=== PATIENT | male | born 1975 | race African-American/Black ===

== ENCOUNTER → 2018-08-17 14:07 | Outpatient (CLI) | payer MEDICARE ==
[~2018-08-17 14:07] MED LIST: AMBIEN10 MG PO; HYDROCODON-ACE1 EA10 PO; NEURONTIN600 MG PO; ULTRAM50 MG PO; ZANAFLEX4 MG
[2018-08-23 14:57] VITALS: BMI 22.4
== END | disposition home or self-care (01) ==
LOC: D.RAD 14:07
PROVIDERS: ATTEND Emergency Medicine
DX: S67.10XA Crushing injury of unspecified finger(s), initial encounter (principal); X58.XXXA Exposure to other specified factors, initial encounter

== ENCOUNTER 2018-08-22 18:49 | Inpatient (IN) | payer MEDICARE ==
[~2018-08-22] VITALS: Ht 185.4 cm; Wt 77.1 kg
[2018-08-22] MEDS ORDERED: ULTRAM50 MG PO (18:59)
[2018-08-22] MEDS ORDERED: NEURONTIN600 MG PO (19:01)
[2018-08-22] MEDS ORDERED: AMBIEN10 MG PO (19:01)
[2018-08-22] MEDS ORDERED: HYDROCODON-ACE1 EA10 PO (19:02)
[2018-08-22 19:29] LABS: HEMATOCRIT 37.4 % (42.0-54.0); HEMOGLOBIN 13.3 g/dL (13.5-17.5); MCH 27.5 pg (26.0-34.0); MCHC 35.6 g/dL (31.0-37.0); MCV 77.3 fL (80.0-100.0); MEAN PLATELET VOLUME 9.9 fL (7.4-10.4); PLATELET COUNT 272 10x3/uL (130-400); RBC 4.84 10x6/uL (4.20-6.10); RDW 15.7 % (11.5-14.5); WBC 29.6 10x3/uL (4.8-10.8)
[2018-08-22 19:42] LABS: ANION GAP 20.7 mmol/L (8-16); BILIRUBIN - TOTAL 0.6 mg/dL (0.2-1.3); CALCIUM 9.6 mg/dL (8.5-10.1); CARBON DIOXIDE 22.5 mmol/L (21.0-32.0); CREATININE - SERUM 1.4 mg/dL (0.6-1.3); POTASSIUM - SERUM 4.2 mmol/L (3.5-5.1)
[2018-08-22 19:51] LABS: LYMPHOCYTES 3 % (15-50); MONOCYTES 6 % (2-11); NEUTROPHILS 90 % (40-80); PLATELET ESTIMATE NORMAL; TEAR DROP CELLS 1+
[2018-08-22 20:06] LABS: TROPONIN-I 0.079 ng/mL (0.000-0.060)
[2018-08-22 20:21] VITALS: BP 130/88
[2018-08-22 20:34] LABS: CREATINE KINASE 748 UL (21-232)
[2018-08-22 20:36] LABS: CKMB 2.4 U/L (0.0-3.6)
[2018-08-22 21:30] VITALS: BP 118/74
[2018-08-22 21:35] LABS: APPEARANCE CLEAR (CLEAR); BILIRUBIN NEGATIVE (NEGATIVE); COLOR YELLOW (YELLOW); GLUCOSE NEGATIVE (NEGATIVE); KETONE MODERATE mg/dL (NEGATIVE); NITRITE POSITIVE (NEGATIVE); PROTEIN 1+ mg/dL (NEGATIVE); SPECIFIC GRAVITY 1.015 (1.005-1.020); UROBILINOGEN NORMAL (NORMAL)
[2018-08-22 21:37] LABS: BACTERIA MODERATE /hpf (NONE SEEN); RED CELLS - URINE 0-5 /hpf (0-5)
--- NOTE | 2018-08-22 22:20 | NUR ---
PT LAYING IN BED. RESPIRATIONS ARE EVEN AND UNLABORED. NO DISTRESS NOTED AT THIS TIME. WILL CONTINUE TO MONITOR. UPDATE PT ON PLAN OF CARE. FAMILY AT BEDSIDE.
[2018-08-22 22:22] VITALS: BP 110/69
--- NOTE | 2018-08-23 00:02 | NUR ---
PT TO FLOOR. ASSUMED CARE OF PATIENT. MOTHER AT BEDSIDE. DENIES PAIN AT THIS TIME. REQUESTS NAUSEA MEDICATION. ADVISED WELL REACTIVATOR OPERATOR LIGHT AND PROVIDED DEMONSTRATION ON HOW TO USE. PT AND MOTHER BOTH VERBALIZE UNDERSTANDING.
[2018-08-23] MEDS ORDERED: ZANAFLEX4 MG PO (00:14)
[2018-08-23 01:11] VITALS: BP 117/73; BMI 22.4
--- NOTE | 2018-08-23 02:04 | NUR ---
RN NOTE: ADMISSION ASSESSMENT COMPLETE. CONNECTED CONLEY BAG TO EXTERNAL CATHETER.
[2018-08-23 04:57] VITALS: BP 97/56
[2018-08-23 05:40] LABS: BASOPHILS 0.1 % (0-2); EOSINOPHILS 0 % (0-7); HEMATOCRIT 35.6 % (42.0-54.0); HEMOGLOBIN 12.2 g/dL (13.5-17.5); IMMATURE GRANULOCYTES 1.5 % (0-5); LYMPHOCYTES 6.1 % (15-50); MCH 26.3 pg (26.0-34.0); MCHC 34.3 g/dL (31.0-37.0); MCV 76.9 fL (80.0-100.0); MONOCYTES 5.5 % (2-11); NEUTROPHILS 86.8 % (40-80); PLATELET COUNT 284 10x3/uL (130-400); RBC 4.63 10x6/uL (4.20-6.10); RDW 15.2 % (11.5-14.5)
[2018-08-23 06:18] LABS: ALBUMIN 2.5 g/dL (3.4-5.0); ALKALINE PHOSPHATASE 107 U/L (46-116); ALT (SGPT) 26 U/L (10-68); BILIRUBIN - TOTAL 0.44 mg/dL (0.2-1.3); CALCIUM 8.5 mg/dL (8.5-10.1); CARBON DIOXIDE 21.3 mmol/L (21.0-32.0); CHLORIDE - SERUM 104 mmol/L (98-107); CKMB 1.7 U/L (0.0-3.6); CREATININE - SERUM 1.2 mg/dL (0.6-1.3); GLUCOSE 86 mg/dL (74-106); POTASSIUM - SERUM 3.8 mmol/L (3.5-5.1); PROTEIN - SERUM 7.7 g/dL (6.4-8.2); SODIUM 140 mmol/L (136-145); eGFR NON AFRICAN AMERICAN 71 mL/min (90-120)
[2018-08-23 06:29] LABS: CALC OSMOLALITY 283 mosm/kg (275-300); CREATINE KINASE 474 UL (21-232); TROPONIN-I 0.079 ng/mL (0.000-0.060); UREA NITROGEN 29 mg/dL (7-18)
--- NOTE | 2018-08-23 06:32 | NUR ---
I have reviewed this patient and I concur with the Shift Assessment completed by the Licensed Practical Nurse today this shift.
--- NOTE | 2018-08-23 06:32 | NUR ---
I have reviewed this patient and I concur with the Shift Assessment completed by the Licensed Practical Nurse today this shift.
--- NOTE | 2018-08-23 07:35 | NUR ---
PT SITTING UP IN BED, ALERT AND ORIENTED. FAMILY AT BEDSIDE. NO C/O PAIN. NO S/S OF ACUTE DISTRESS NOTED. PT PARAPLEGIC, SLIGHT CONTRACTURES TO UPPER EXTREMETIES. [place] CATH WITH CONLEY BAG. IV TO RIGHT UPPER ARM, NS INFUSING @ 200ML/HR. NO C/O PAIN. NO S/S OF ACUTE DISRESS NOTED. PT DENIES ANYTHING FURTHER AT THIS TIME. CALL LIGHT IN REACH. WILL CONTINUE TO MONITOR.
[2018-08-23 08:39] VITALS: BP 104/69
[2018-08-23 13:13] VITALS: BP 123/83
[2018-08-23 14:57] VITALS: Ht 185.4 cm; Wt 77.1 kg
[2018-08-23 16:46] VITALS: BP 119/84
--- NOTE | 2018-08-23 16:53 | NUR ---
I have reviewed this patient and I concur with the Shift Assessment completed by the Licensed Practical Nurse today this shift.
--- NOTE | 2018-08-23 18:40 | NUR ---
PT RESTING IN BED, ALERT AND ORIENTED. PT DENIES ANYTHING FURTHER AT THIS TIME. CALL LIGHT IN REACH. FAMILY AT BEDSIDE. WILL CONTINUE TO MONITOR.
[2018-08-23 21:13] VITALS: BP 115/73
[2018-08-24 04:00] VITALS: BP 127/80
--- NOTE | 2018-08-24 07:29 | NUR ---
INITIAL ROUNDING, WHITE BOARD UPDATED. PATIENT IS AWAKE AND IN BED, SUPINE. MOM IS AT BEDSIDE. PATIENT IS REPORTING PAIN OF 5/10 AND STATES, "THIS IS NORMAL FOR ME, IM GOOD WITH IT". HE DENIES ANY NEEDS AT THIS TIME. CALL LIGHT IN REACH.
[2018-08-24 08:01] LABS: CALCIUM 8.2 mg/dL (8.5-10.1); CHLORIDE - SERUM 106 mmol/L (98-107); SODIUM 140 mmol/L (136-145); eGFR NON AFRICAN AMERICAN 87 mL/min (90-120)
[2018-08-24 08:08] LABS: HEMATOCRIT 33.6 % (42.0-54.0); HEMOGLOBIN 11.5 g/dL (13.5-17.5); MCH 26.4 pg (26.0-34.0); MCHC 34.2 g/dL (31.0-37.0); MCV 77.1 fL (80.0-100.0); PLATELET COUNT 284 10x3/uL (130-400); RBC 4.36 10x6/uL (4.20-6.10); RDW 15.3 % (11.5-14.5)
[2018-08-24 08:21] LABS: CALC OSMOLALITY 279 mosm/kg (275-300); GLUCOSE 139 mg/dL (74-106); UREA NITROGEN 10 mg/dL (7-18)
[2018-08-24 08:38] LABS: EOSINOPHILS 1 % (0-7); LYMPHOCYTES 3 % (15-50); MONOCYTES 14 % (2-11); NEUTROPHILS 72 % (40-80); PLATELET ESTIMATE NORMAL
[2018-08-24 09:30] VITALS: BP 130/87
--- NOTE | 2018-08-24 12:11 | MORECARE ---
CASE MANAGEMENT DISCHARGE SUMMARY PATIENT: URIEL REY UNIT: [id number] ADM DATE: 08/22/18 AGE: 43 : 77 SEX: M ROOM/BED: D.2232 AUTHOR: SARAN CAMILO PHYSICIAN: REFERRING PHYSICIAN: EVER PAUL MD DATE OF SERVICE: 08/24/18 Discharge Plan Patient Name: URIEL REY Facility: [facility]:[place] : 1975 Planned Disposition: Home Anticipated Discharge Date: Discharge Date: Expected LOS: Initial Reviewer: [email or web address] Initial Review Date: 08/24/2018 Generated: 08/24/18 1:11 pm Patient Name: URIEL REY Page [id number] at 1211 All edits/amendments must be made on the electronic document DICTATION DATE: 08/24/18 1211 BUSINESS EDITOR: SAMMY 08/24/18 1211 RPT#: [id number] DC DATE: STATUS: ADM IN [facility] [address] [place] [address] END OF REPORT
--- NOTE | 2018-08-24 12:21 | MORECARE ---
CASE MANAGEMENT DISCHARGE SUMMARY PATIENT: URIEL REY UNIT: [id number] ADM DATE: 08/22/18 AGE: 43 : 77 SEX: M ROOM/BED: D.2232 AUTHOR: LESLEE,DOC PHYSICIAN: REFERRING PHYSICIAN: EVER PAUL MD DATE OF SERVICE: 08/24/18 Discharge Plan Patient Name: URIEL REY Facility: [facility]:[place] : 1975 Planned Disposition: Home Anticipated Discharge Date: Discharge Date: Expected LOS: Initial Reviewer: [email or web address] Initial Review Date: 08/24/2018 Generated: 08/24/18 1:20 pm Comments DCP- Discharge Planning Updated by [email or web address]: Berenice Vogel on 08/24/18 11:[address] Patient Name: URIEL REY Admission Status: ER Accout number: [id number] Admission Date: 08-22-2018 : 1975 Admission Diagnosis:ACUTE KIDNEY FAILURE, UNSPECIFIED Attending: DONY Current LOS: 2 Anticipated DC Date: Planned Disposition: Home Primary Insurance: MEDICARE A & B Discharge Planning Comments: CM met with patient to discuss discharge planning/needs. His mother is present in the room and verbal permission received to discuss discharge planning with his mother present. He lives alone. He states he has a career development counselor come in 7 days a week (5 hours a day for 5 days and 6 hours a day for 2 days). 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 He states his plan is to return home. He declines need for home health, rehab or additional DME. CM will continue to follow and assist with discharge planning/needs. Magnetometer Operator: Berenice Vogel DCPIA - Discharge Planning Initial Assessment Updated by [email or web address]: Berenice Vogel on 08/24/18 12:14 pm * Is the patient Alert and Oriented? Yes * How many steps to enter\exit or inside your home? 0/0 * PCP Dr. Paul * Pharmacy [facility] [address] * Preadmission Environment Home Alone * ADLs Partial Dependent * Partial ADLs (Assistance needed) Ambulation Bathing Dressing * Equipment Bedside Commode Other Shower Chair Wheelchair * Other Equipment [place] catheters and supplies Air mattress overlay Power wheelchair * List name and contact numbers for known caregivers / representatives who currently or will assist patient after discharge: Bailey Amador - private career development counselor Messi Rey - mother - [phone] * Verbal permission to speak to the caregivers and representatives has been obtained from the patient. Yes * Community resources currently utilized Private Duty Care * Additional services required to return to the preadmission environment? No * Can the patient safely return to the preadmission environment? Yes * Has this patient been hospitalized within the prior 30 days at any hospital? No Last DP export: 08/24/18 11:11 am Patient Name: URIEL REY Page [id number] at 1221 All edits/amendments must be made on the electronic document DICTATION DATE: 08/24/18 1220 SALESPERSON FASHION ACCESSORIES: SAMMY 08/24/18 1220 RPT#: [id number] DC DATE: STATUS: ADM IN [facility] [address] [place] [address] END OF REPORT
[2018-08-24 13:32] VITALS: BP 121/75
[2018-08-24 17:19] VITALS: BP 117/69
--- NOTE | 2018-08-24 18:00 | NUR ---
PATIENT REQUESTING A DUCOLOX SUPP IN THE AM AND TO BE ASSISTED TO THE BED SIDE COMMODE TO PROMOTE BM. HE REPORTS THIS IS HOW HE DOES IT AT HOME WITH CARE GIVERS
[2018-08-24 21:47] VITALS: BP 114/72
[2018-08-25 04:53] VITALS: BP 126/88
[2018-08-25 07:42] LABS: BASOPHILS 0.4 % (0-2); EOSINOPHILS 0.7 % (0-7); HEMATOCRIT 35.1 % (42.0-54.0); HEMOGLOBIN 11.8 g/dL (13.5-17.5); IMMATURE GRANULOCYTES 6.7 % (0-5); LYMPHOCYTES 12.1 % (15-50); MCH 26.3 pg (26.0-34.0); MCHC 33.6 g/dL (31.0-37.0); MCV 78.2 fL (80.0-100.0); MEAN PLATELET VOLUME 10.3 fL (7.4-10.4); MONOCYTES 8.4 % (2-11); NEUTROPHILS 71.7 % (40-80); PLATELET COUNT 308 10x3/uL (130-400); RBC 4.49 10x6/uL (4.20-6.10); RDW 15.6 % (11.5-14.5); WBC 19.1 10x3/uL (4.8-10.8)
[2018-08-25 07:46] LABS: CALC OSMOLALITY 280 mosm/kg (275-300); CALCIUM 7.8 mg/dL (8.5-10.1); CARBON DIOXIDE 25.6 mmol/L (21.0-32.0); CHLORIDE - SERUM 108 mmol/L (98-107); CREATININE - SERUM 0.8 mg/dL (0.6-1.3); GLUCOSE 93 mg/dL (74-106); POTASSIUM - SERUM 3.4 mmol/L (3.5-5.1); SODIUM 142 mmol/L (136-145); eGFR NON AFRICAN AMERICAN > 90 mL/min (90-120)
[2018-08-25 07:47] LABS: UREA NITROGEN 6 mg/dL (7-18)
[2018-08-25 08:39] VITALS: BP 138/88
[2018-08-25 13:13] VITALS: BP 143/90
--- NOTE | 2018-08-25 14:46 | NUR ---
NUTRITION F/U DIET ADVANCED TO REG WITH NO RESTRICTIONS. ~50% INTAKE RECENT MEALS. WILL CONTINUE TO HONOR FOOD PREFERENCES, MONITOR PO INTAKE. RD FOLLOWING
--- NOTE | 2018-08-25 16:41 | NUR ---
MEDICATE WITH NORCO FOR C/O GENERALIZED PAIN RATING 8/10 ON PAIN SCALE.
[2018-08-25 17:36] VITALS: BP 167/98
[2018-08-25 20:50] VITALS: BP 130/91
[2018-08-26 04:47] VITALS: BP 124/81
[2018-08-26 06:51] LABS: CALC OSMOLALITY 281 mosm/kg (275-300); CALCIUM 8.3 mg/dL (8.5-10.1); CHLORIDE - SERUM 108 mmol/L (98-107); CREATINE KINASE 57 UL (21-232); CREATININE - SERUM 0.7 mg/dL (0.6-1.3); GLUCOSE 89 mg/dL (74-106); POTASSIUM - SERUM 3.5 mmol/L (3.5-5.1); SODIUM 143 mmol/L (136-145); TROPONIN-I < 0.017 ng/mL (0.000-0.060); UREA NITROGEN 6 mg/dL (7-18); eGFR NON AFRICAN AMERICAN > 90 mL/min (90-120)
[2018-08-26 07:06] LABS: HEMATOCRIT 33.1 % (42.0-54.0); HEMOGLOBIN 11.2 g/dL (13.5-17.5); MCH 26.4 pg (26.0-34.0); MCHC 33.8 g/dL (31.0-37.0); MCV 77.9 fL (80.0-100.0); MEAN PLATELET VOLUME 9.8 fL (7.4-10.4); PLATELET COUNT 330 10x3/uL (130-400); RBC 4.25 10x6/uL (4.20-6.10); RDW 15.6 % (11.5-14.5); WBC 22.4 10x3/uL (4.8-10.8)
--- NOTE | 2018-08-26 07:15 | NUR ---
REC'D IN BED AWAKE AND ALERT. RESP EVEN AND UNLABORED WITH NO DISTRESS NOTED. CAN EXPRESS NEEDS AND WANTS. NO C/O NOTED OR VOICED. ASSESSMENT COMPLETED. C/L IN REACH AT BEDSIDE.
[2018-08-26 09:48] VITALS: BP 139/86
[2018-08-26 10:06] LABS: ANISOCYTOSIS OCC; EOSINOPHILS 1 % (0-7); LYMPHOCYTES 13 % (15-50); MONOCYTES 13 % (2-11); NEUTROPHILS 58 % (40-80); PLATELET ESTIMATE NORMAL; ROULEAUX OCC
[2018-08-26 13:19] VITALS: BP 139/80
[2018-08-26 16:44] VITALS: BP 181/92
--- NOTE | 2018-08-26 19:55 | NUR ---
LAYING IN BED WITH HIS MOM AT THE BEDSIDE. DAY SHIFT RN STARTING NEW IV. NO SIGNS OF DISTRESS AND DENIES ANY NEEDS AT THIS TIME. WILL CONTINUE TO MONITOR.
[2018-08-26 21:58] VITALS: BP 139/82
--- NOTE | 2018-08-26 22:54 | NUR ---
PT REPORTS PAIN 10/10, GENERALIZED ACHING ALL OVER. ADMINISTERED NORCO PER DRS ORDERS, WILL CONTINUE TO MONITOR. DENIES ANY FURTHER NEEDS AT THIS TIME. BED LOW, CALL LIGHT IN REACH, RAILS UP X 2.
[2018-08-27 05:37] VITALS: BP 145/91
[2018-08-27 08:14] LABS: CALC OSMOLALITY 278 mosm/kg (275-300); CALCIUM 8.1 mg/dL (8.5-10.1); CARBON DIOXIDE 26.2 mmol/L (21.0-32.0); CHLORIDE - SERUM 105 mmol/L (98-107); CREATININE - SERUM 0.6 mg/dL (0.6-1.3); GLUCOSE 110 mg/dL (74-106); POTASSIUM - SERUM 3.7 mmol/L (3.5-5.1); SODIUM 141 mmol/L (136-145); UREA NITROGEN 5 mg/dL (7-18); eGFR NON AFRICAN AMERICAN > 90 mL/min (90-120)
[2018-08-27 08:18] LABS: BASOPHILS 0.2 % (0-2); HEMOGLOBIN 11.6 g/dL (13.5-17.5); IMMATURE GRANULOCYTES 4.7 % (0-5); LYMPHOCYTES 9.2 % (15-50); MCH 26.3 pg (26.0-34.0); MCHC 34.1 g/dL (31.0-37.0); MCV 77.1 fL (80.0-100.0); MEAN PLATELET VOLUME 9.8 fL (7.4-10.4); MONOCYTES 3.8 % (2-11); NEUTROPHILS 81.1 % (40-80); PLATELET COUNT 380 10x3/uL (130-400); RBC 4.41 10x6/uL (4.20-6.10); RDW 15.8 % (11.5-14.5); WBC 21.6 10x3/uL (4.8-10.8)
--- NOTE | 2018-08-27 09:00 | NUR ---
ALERT AND ORIENTEDX4. PARAALEGIA NOTED WITH SLIGHT MOVEMENT TO BUE. CONDOM CATHETER INTACT WITH MARIELY URINE NOTED. IV TO LT. HAND WITH IVF INFUSING AT PRESCRIBED RATE W/O S/S OF INFECTION/INFILTRATION. FAMILY PRESENT AND ENCOURAGED TO USE CALL LIGHT FOR ASSSIT. ENCOURAGED TO CHANGE POSITION Q 2 HRS AND PRN.
[2018-08-27 09:51] VITALS: BP 136/85
[2018-08-27 12:00] VITALS: BP 143/67
--- NOTE | 2018-08-27 15:36 | NUR ---
Nutrition Follow Up: Chart reviewed. Diet has been changed to regular with no restrictions. +BM 08/24/18. Meds and labs reviewed. Rec continue current MEGHA. RD following.
[2018-08-27 16:51] VITALS: BP 127/81
[2018-08-27 20:00] VITALS: BP 145/87
[2018-08-28] VITALS: BP 101/62
[2018-08-28 04:00] VITALS: BP 110/71
[2018-08-28 05:46] LABS: BASOPHILS 0.2 % (0-2); EOSINOPHILS 1.5 % (0-7); HEMATOCRIT 33.5 % (42.0-54.0); HEMOGLOBIN 11.4 g/dL (13.5-17.5); IMMATURE GRANULOCYTES 2.8 % (0-5); LYMPHOCYTES 13.3 % (15-50); MCH 26.6 pg (26.0-34.0); MCV 78.1 fL (80.0-100.0); MEAN PLATELET VOLUME 9.6 fL (7.4-10.4); MONOCYTES 5.4 % (2-11); NEUTROPHILS 76.8 % (40-80); PLATELET COUNT 414 10x3/uL (130-400); RBC 4.29 10x6/uL (4.20-6.10); RDW 15.5 % (11.5-14.5); WBC 18.8 10x3/uL (4.8-10.8)
[2018-08-28 06:23] LABS: CALC OSMOLALITY 278 mosm/kg (275-300); CALCIUM 8.2 mg/dL (8.5-10.1); CARBON DIOXIDE 27.6 mmol/L (21.0-32.0); CHLORIDE - SERUM 107 mmol/L (98-107); CREATININE - SERUM 0.7 mg/dL (0.6-1.3); GLUCOSE 87 mg/dL (74-106); POTASSIUM - SERUM 3.7 mmol/L (3.5-5.1); SODIUM 142 mmol/L (136-145); eGFR NON AFRICAN AMERICAN > 90 mL/min (90-120)
[2018-08-28 06:29] LABS: UREA NITROGEN 3 mg/dL (7-18)
--- NOTE | 2018-08-28 09:00 | NUR ---
ALERT AND ORIENTED X4 WITH CONTRATURES NOTED TO BILATERAL HANDS AND LIMINTED ROM DUE TO PARAPALEGIA STATUS. TELEMETRY INTACT. IVF INFUSING TO RT. HAND WITH NO S/S OPF INFECTION /INFILTRATION NOTED. NORCO GIVEN FOR GENERAIZED PAIN AND EFFECTIVE. ENCOURAGE PT AND MOTHER TO USE CALL LIGHT FOR ASSIST. POSITIONED CHANGED
[2018-08-28 09:29] VITALS: BP 159/84
[2018-08-28] MEDS ORDERED: LEVOFLOXACIN500 MG PO (10:08)
--- NOTE | 2018-08-28 13:22 | NUR ---
IV DISCONTINUED AND DISCHARGED UNDER THE CARE OF MOTHER VIA POV. PT VERBALIZED UNDERSTANDING OF DISCHARGE INSTRUCTIONS AND STABLE AT TIME OF DEPARTURE. PT LEAVING WITH [place] CATHETER WITH CLEAR MARIELY URINE VIA ELECTRIC W/C.
--- NOTE | 2018-08-30 17:20 | MORECARE ---
CASE MANAGEMENT DISCHARGE SUMMARY PATIENT: URIEL REY UNIT: [id number] ADM DATE: 08/22/18 AGE: 43 : 77 SEX: M ROOM/BED: D.2232 AUTHOR: LESLEE,DOC PHYSICIAN: REFERRING PHYSICIAN: EVER PAUL MD DATE OF SERVICE: 08/30/18 Discharge Plan Patient Name: URIEL REY Facility: [facility]:[place] : 1975 Planned Disposition: Home Anticipated Discharge Date: Discharge Date: 08/28/2018 Expected LOS: 0 Initial Reviewer: [email or web address] Initial Review Date: 08/24/2018 Generated: 08/30/18 6:19 pm DCP- Discharge Planning Updated by [email or web address]: Berenice Vogel on 08/24/18 11:[address] Patient Name: URIEL REY Admission Status: ER Accout number: [id number] Admission Date: 08-22-2018 : 1975 Admission Diagnosis:ACUTE KIDNEY FAILURE, UNSPECIFIED Attending: DONY Current LOS: 2 Anticipated DC Date: Planned Disposition: Home Primary Insurance: MEDICARE A & B Discharge Planning Comments: CM met with patient to discuss discharge planning/needs. His mother is present in the room and verbal permission received to discuss discharge planning with his mother present. He lives alone. He states he has a animal care specialist come in 7 days a week (5 hours a day for 5 days and 6 hours a day for 2 days). 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 He states his plan is to return home. He declines need for home health, rehab or additional DME. CM will continue to follow and assist with discharge planning/needs. Ekg Manager: Berenice Vogel DCPIA - Discharge Planning Initial Assessment Updated by [email or web address]: Berenice Vogel on 08/24/18 12:14 pm * Is the patient Alert and Oriented? Yes * How many steps to enter\exit or inside your home? 0/0 * PCP Dr. Paul * Pharmacy [facility] [address] * Preadmission Environment Home Alone * ADLs Partial Dependent * Partial ADLs (Assistance needed) Ambulation Bathing Dressing * Equipment Bedside Commode Other Shower Chair Wheelchair * Other Equipment [place] catheters and supplies Air mattress overlay Power wheelchair * List name and contact numbers for known caregivers / representatives who currently or will assist patient after discharge: Bailey Perry - private animal care specialist Messi Rey - mother - [phone] * Verbal permission to speak to the caregivers and representatives has been obtained from the patient. Yes * Community resources currently utilized Private Duty Care * Additional services required to return to the preadmission environment? No * Can the patient safely return to the preadmission environment? Yes * Has this patient been hospitalized within the prior 30 days at any hospital? No Last DP export: 08/24/18 11:20 am Patient Name: URIEL REY Page [id number] at 1720 All edits/amendments must be made on the electronic document DICTATION DATE: 08/30/181718 DIRECTOR OF CARDIOLOGY SERVICE LINE: SAMMY 08/30/181718 RPT#: [id number] DC DATE:08/28/18 STATUS: DIS IN [facility] [address] [place] [address] END OF REPORT
== END 2018-08-28 13:23 | disposition home or self-care (01) | DRG 682 ==
LOC: D.ER 18:49 → D.MS 23:18
PROVIDERS: Emergency Medicine; Family Medicine; Legal Medicine; ADMIT Emergency Medicine; ATTEND Emergency Medicine
DX: N17.9 Acute kidney failure, unspecified (principal); A41.9 Sepsis, unspecified organism; N39.0 Urinary tract infection, site not specified; G82.20 Paraplegia, unspecified; D64.9 Anemia, unspecified; T14.8XXS Other injury of unspecified body region, sequela